=== PATIENT | male | born 2000 | race African-American/Black ===

== ENCOUNTER 2019-04-15 20:27 | Emergency (ER) | payer OTHER ==
[~2019-04-15] VITALS: Ht 187.9 cm; Wt 93.4 kg
--- NOTE | 2019-04-15 20:46 | ED Upper Extremity ---
General Chief Complaint: Upper Extremity Stated Complaint: POSS DISLOCATED SHOULDER Source: patient History of Present Illness Date Seen by Provider: Apr 15, 2019 Time Seen by Provider: 20:33 Initial Comments 18-year-old male presenting with complaints of right shoulder pain. He states that at practice they were doing "up/downs" and he felt pain and something pop in his right shoulder. He thinks he dislocated his right shoulder because he has pain and it is only comfortable if he holds it out at 90. He feels like he has some tingling in his pinky finger on the right hand. He has no previous injury to the right shoulder. He denies any other injuries. Allergies and Home Medications Allergies Coded Allergies: No Known Drug Allergies (Unverified , 04/15/19) Home Medications Cyclobenzaprine HCl 10 Mg Tablet, 10 MG PO Q8H PRN for SPASMS Prescribed by: ANA LYNN on 04/15/192121 Ibuprofen 800 Mg Tablet, 800 MG PO Q8H PRN for PAIN Prescribed by: ANA LYNN on 04/15/192121 Patient Home Medication List Home Medication List Reviewed: Yes Review of Systems Constitutional: no symptoms reported EENTM: no symptoms reported Respiratory: no symptoms reported Cardiovascular: no symptoms reported Gastrointestinal: no symptoms reported Genitourinary: no symptoms reported Musculoskeletal: see HPI Skin: no symptoms reported Psychiatric/Neurological: See HPI Past Cfaugfm-Xeyeph-Lnfgtp Hx Past Med/Social Hx: Reviewed Nursing Past Med/Soc Hx Patient Social History Recent Foreign Travel: No Contact w/Someone Who Travel: No Past Medical History Surgeries: No Respiratory: No Physical Exam Vital Signs Vital Signs - First Documented 04/15/19 04/15/19 20:33 21:28 Temp 36.7 Pulse 93 Resp 18 B/P (MAP) 130/65 Pulse Ox 96 O2 Delivery Room Air Capillary Refill : Height, Weight, BMI Height: '" Weight: lbs. oz. kg; BMI Method: General Appearance: WD/WN, mild distress Cardiovascular: normal peripheral pulses, regular rate, rhythm Respiratory: chest non-tender, lungs clear, normal breath sounds Shoulder: limited ROM (due to pain on right shoulder. holding it at 90 degrees abduction), pain, soft tissue tenderness Neurologic/Psychiatric: alert, normal mood/affect, oriented x 3 Skin: normal color, warm/dry Progress/Results/Core Measures Results/Orders My Orders Orders - ANA LYNN MD Shoulder 3 View Right (04/15/19 20:39) Ice: Apply To Affected Area (04/15/19 20:39) Cyclobenzaprine Tablet (Flexeril Tablet) (04/15/19 20:57) Ed Ortho/Other Supplies Order (04/15/19 20:57) Vital Signs/I&O 04/15/19 04/15/19 20:33 21:28 Temp 36.7 Pulse 93 93 Resp 18 18 B/P (MAP) 130/65 Pulse Ox 96 O2 Delivery Room Air Room Air Progress Progress Note #1: Progress Note check xrays of right shoulder Progress Note #2: Progress Note On my review of his 3 view shoulder x-rays on the right he has no acute dislocation or fracture. Counseled that he may have problems with the before meals joint or muscle and rotator cuff. We will try treating for inflammation and muscle spasms as well as left shoulder rest with a sling. Given a note for sports and PE. Have him check back with orthopedics in the education trainer. He may need to have an MRI done if he continues to have symptoms and problems Diagnostic Imaging Diagonstic Imaging: Xray Plain Films/CT/US/NM/MRI: other (shoulder) Comments NAME: HAILY JUÁREZ [facility] REC#: [id number] PT STATUS: REG ER : 2000 PHYSICIAN: ANA LYNN MD ADMIT DATE: 04/15/19/ER FS Draft Date of Exam:04/15/19 SHOULDER 3 VIEW RIGHT INDICATION: Right shoulder injury AP, oblique, and transscapular views of the right shoulder are obtained. No fracture or dislocation is seen. There is no acute bony abnormality. AC joint and glenohumeral joint appear unremarkable. IMPRESSION: Negative right shoulder. Dictated on workstation # [id number] Dict: 04/15/192099 Trans: 04/15/192100 [facility] [id number] Interpreted by: KRZYSZTOF HAND MD Electronically signed by: Departure Impression Primary Impression: Right shoulder strain Qualified Codes: S46.911A - Strain of unspecified muscle, fascia and tendon at shoulder and upper arm level, right arm, initial encounter Additional Impression: Shoulder pain, right Qualified Codes: M25.511 - Pain in right shoulder Disposition: 01 HOME, SELF-CARE Condition: Stable Departure-Patient Inst. Decision time for Depature: 21:17 Referrals: NO,LOCAL PHYSICIAN (PCP/Family) Primary Care Physician Patient Instructions: How to Use a Shoulder Sling, Shoulder Pain (DC) Add. Discharge Instructions: Use the shoulder sling for support over the next 3-4 days. Then make sure to move your arm and shoulder and work your way out of the sling so your shoulder does not stiffen up on you. Check with your education trainer and Orthopedics for follow up as you may need physical therapy or possibly an MRI, especially if you have worsening pain or are not improving. Inocencio Groves with Orthopedics is at [facility] and his office number is [phone] Take the anti-inflammatory medicine and muscle relaxer to help with your pain and shoulder tightness. You may also apply ice 20-30 minutes every few hours as needed for pain and swelling. All discharge instructions reviewed with patient and/or family. Voiced understanding. Scripts Cyclobenzaprine HCl (Cyclobenzaprine HCl) 10 Mg Tablet 10 MG PO Q8H PRN for SPASMS for 5 Days, #15 TAB 0 Refills Prov: ANA LYNN MD 04/15/19 Ibuprofen (Ibuprofen) 800 Mg Tablet 800 MG PO Q8H PRN for PAIN for 10 Days, #30 TAB 0 Refills Prov: ANA LYNN MD 04/15/19 Work/School Note: School/Childcare Release Date Seen in the Emergency Department: Apr 15, 2019 Time Dismissed from Emergency Department: 21:30 Return to School: Apr 16, 2019 Restrictions: No PE-Until Released, No Sports-Until Released Other Restrictions Listed Below: Limit use of right arm/shoulder until c leared by Orthopedics ANA LYNN MD Apr 15, 2019 20:45
[2019-04-15] MEDS ORDERED: CYCLOBENZAPRINE 10 MG (FLEXERIL) TAB PO STA (20:57)
--- NOTE | 2019-04-15 21:01 | Diagnostic Imaging Report ---
INDICATION: Right shoulder injury AP, oblique, and transscapular views of the right shoulder are obtained. No fracture or dislocation is seen. There is no acute bony abnormality. AC joint and glenohumeral joint appear unremarkable. IMPRESSION: Negative right shoulder. Dictated by: Dictated on workstation # [id number]
[2019-04-15] MEDS ORDERED: CYCL10TA9 PO (21:22)
[2019-04-15] MEDS ORDERED: IBUP-1780 PO (21:22)
== END 2019-04-15 21:28 | disposition home or self-care (01) ==
LOC: ER FS 20:30
DX: S46.911A Strain of unspecified muscle, fascia and tendon at shoulder and upper arm level, right arm, initial encounter (principal); X50.1XXA Overexertion from prolonged static or awkward postures, initial encounter
CPT/HCPCS: 73030